=== PATIENT | female | born 1930 | race African-American/Black ===

== ENCOUNTER 2017-04-22 21:00 | Emergency (ER) | payer MEDICARE, OTHER ==
[~2017-04-22] VITALS: Ht 170.2 cm; Wt 81.6 kg
[2017-04-22] MEDS ORDERED: ONDANSETRON PF 4 MG/2 ML VIAL. IV ONE (21:30)
[2017-04-22] MEDS ORDERED: fentaNYL PF VIAL 100 MCG/2 ML VIAL IV PRN (21:30)
[2017-04-22 21:40] LABS: BASO # 0.1 x10^3/uL (0.0-0.2); BASO % 1 % (0-3); EOS % 2 % (0-3); HEMATOCRIT 29.9 % (36.0-47.0); LYMPH # 1.8 x10^3/uL (1.0-4.8); LYMPH % 27 % (24-48); MEAN CORPUSCULAR HEMOGLOBIN 31 pg (25-35); MEAN CORPUSCULAR HGB CONC 33 g/dL (31-37); MEAN CORPUSCULAR VOLUME 92 fL (79-100); MONO % 8 % (0-9); NEUT % 62 % (31-73); PLATELET COUNT 378 x10^3/uL (140-400); RED BLOOD COUNT 3.27 x10^6/uL (3.50-5.40); RED CELL DISTRIBUTION WIDTH 14.4 % (11.5-14.5); WHITE BLOOD COUNT 6.8 x10^3/uL (4.0-11.0)
[2017-04-22 21:52] LABS: CALCIUM 9.9 mg/dL (8.5-10.1); GFR 63.8; POTASSIUM 3.4 mmol/L (3.5-5.1)
[2017-04-22 21:57] LABS: ALBUMIN 3.9 g/dL (3.4-5.0); ALBUMIN/GLOBULIN RATIO 1.1 (1.0-1.7); TOTAL BILIRUBIN 0.4 mg/dL (0.2-1.0); TOTAL PROTEIN 7.6 g/dL (6.4-8.2)
--- NOTE | 2017-04-22 22:03 | ED.ADGEN ---
Past Medical History Past Medical History: Diabetes-Type II, Hypertension, Kidney Stone Past Surgical History: Appendectomy, Cholecystectomy, Hysterectomy, Other Additional Past Surgical Histo: BLADDER REPAIR Alcohol Use: None Drug Use: None Adult General Chief Complaint Chief Complaint: FLANK PAIN HPI HPI Patient is a 86 year old woman, history of type 2 diabetes mellitus, hypertension, recurrent renal calculi, who presents to the emergency department with a complaint of right-sided abdominal pain that began yesterday morning. Patient states today she was also experiencing some increased difficulty with urination. Denies any hematuria or dysuria. Patient states the pain is similar to previous renal calculi. She states that "3 years ago had a stone that was too big to pass". She states that she was told she would need surgery, but she declined at that time. Patient states she has not followed up with a neurologist. She denies any fevers or chills, states that she had nausea at home and currently, and had tubes sodas of nonbloody nonbilious emesis since yesterday. She denies any weakness, numbness, tingling, shortness of breath or chest pain, any headache, any presyncopal or syncopal symptoms. No injuries. She states the pain has been located in the right side since it started, without much movement, has been coming and going, up to a 7 out of 10, currently is about a 3 out of 10. She states she's also been experiencing some swelling in her feet, and states that she has forgotten to take her blood pressure medication intermittently over the past several days. History of hysterectomy and cholecystectomy, no recent surgery, travel or exposures. Review of Systems Review of Systems Constitutional: Denies fever or chills. [] Eyes: Denies change in visual acuity. [] HENT: Denies nasal congestion or sore throat. [] Respiratory: Denies cough or shortness of breath. [] Cardiovascular: Denies chest pain or edema. [] GI: Denies bloody stools or diarrhea. [] Right-sided abdominal pain, waxing and waning, associated with decreased urination, nausea and vomiting. : Denies dysuria. [] Musculoskeletal: Denies back pain or joint pain. [] Integument: Denies rash. [] Neurologic: Denies headache, focal weakness or sensory changes. [] Endocrine: Denies polyuria or polydipsia. [] Lymphatic: Denies swollen glands. [] Psychiatric: Denies depression or anxiety. [] Current Medications Current Medications Current Medications Medications (Trade) Dose Ordered Sig/Kaye Start Time Stop Time Status Last Admin Dose Admin Fentanyl Citrate (Fentanyl 2ml Vial) 50 mcg 1X ONCE 04/22/17 23:00 04/22/17 23:01 DC 04/22/17 22:52 50 MCG Morphine Sulfate 5 mg 1X ONCE 04/22/17 23:30 04/22/17 23:31 DC Ondansetron HCl (Zofran) 4 mg 1X ONCE 04/22/17 21:30 04/22/17 21:32 DC 04/22/17 22:01 4 MG Allergies Allergies Allergies Coded Allergies Type Severity Reaction Last Updated Verified No Known Drug Allergies 03/06/14 No Physical Exam Physical Exam Constitutional: Well developed, well nourished, no acute distress, non-toxic appearance. [] HENT: Normocephalic, atraumatic, bilateral external ears normal, oropharynx moist, no oral exudates, nose normal. [] Eyes: PERRLA, EOMI, conjunctiva normal, no discharge. [] Neck: Normal range of motion, no tenderness, supple, no stridor. [] Cardiovascular:Heart rate regular rhythm, no murmur [] Lungs & Thorax: Bilateral breath sounds clear to auscultation [] Abdomen: Bowel sounds normal, soft, no tenderness, no masses, no pulsatile masses. [] Skin: Warm, dry, no erythema, no rash. [] Back: No tenderness, no CVA tenderness. [] Extremities: No tenderness, no cyanosis, no clubbing, ROM intact, no edema. [] Neurologic: Alert and oriented X 3, normal motor function, normal sensory function, no focal deficits noted. [] Psychologic: Affect normal, judgement normal, mood normal. [] Current Patient Data Vital Signs Vital Signs Date Time Temp Pulse Resp B/P (MAP) Pulse Ox O2 Delivery O2 Flow Rate FiO2 04/22/17 22:52 18 Room Air 04/22/17 21:17 99.2 95 220/93 (135) 93 99.2 Lab Values Laboratory Tests Test 04/22/17 21:13 04/22/17 21:52 White Blood Count 6.8 x10^3/uL (4.0-11.0) Red Blood Count 3.27 x10^6/uL (3.50-5.40) L Hemoglobin 10.0 g/dL (12.0-15.5) L Hematocrit 29.9 % (36.0-47.0) L Mean Corpuscular Volume 92 fL (79-100) Mean Corpuscular Hemoglobin 31 pg (25-35) Mean Corpuscular Hemoglobin Concent 33 g/dL (31-37) Red Cell Distribution Width 14.4 % (11.5-14.5) Platelet Count 378 x10^3/uL (140-400) Neutrophils (%) (Auto) 62 % (31-73) Lymphocytes (%) (Auto) 27 % (24-48) Monocytes (%) (Auto) 8 % (0-9) Eosinophils (%) (Auto) 2 % (0-3) Basophils (%) (Auto) 1 % (0-3) Neutrophils # (Auto) 4.2 x10^3uL (1.8-7.7) Lymphocytes # (Auto) 1.8 x10^3/uL (1.0-4.8) Monocytes # (Auto) 0.5 x10^3/uL (0.0-1.1) Eosinophils # (Auto) 0.1 x10^3/uL (0.0-0.7) Basophils # (Auto) 0.1 x10^3/uL (0.0-0.2) Sodium Level 137 mmol/L (136-145) Potassium Level 3.4 mmol/L (3.5-5.1) L Chloride Level 99 mmol/L (98-107) Carbon Dioxide Level 27 mmol/L (21-32) Anion Gap 11 (6-14) Blood Urea Nitrogen 18 mg/dL (7-20) Creatinine 1.0 mg/dL (0.6-1.0) Estimated GFR (Cockcroft-Gault) 63.8 BUN/Creatinine Ratio 18 (6-20) Glucose Level 162 mg/dL (70-99) H Calcium Level 9.9 mg/dL (8.5-10.1) Total Bilirubin 0.4 mg/dL (0.2-1.0) Aspartate Amino Transferase (AST) 27 U/L (15-37) Alanine Aminotransferase (ALT) 19 U/L (14-59) Alkaline Phosphatase 76 U/L (46-116) Total Protein 7.6 g/dL (6.4-8.2) Albumin 3.9 g/dL (3.4-5.0) Albumin/Globulin Ratio 1.1 (1.0-1.7) Urine Collection Type Unknown Urine Color Yellow Urine Clarity Cloudy Urine pH 5.5 Urine Specific [place] 1.010 Urine Protein Negative mg/dL (NEG-TRACE) Urine Glucose (UA) Negative mg/dL (NEG) Urine Ketones (Stick) Negative mg/dL (NEG) Urine Blood Large (NEG) Urine Nitrite Negative (NEG) Urine Bilirubin Negative (NEG) Urine Urobilinogen Dipstick 0.2 mg/dL (0.2 mg/dL) Urine Leukocyte Esterase Large (NEG) Urine RBC 20-40 /HPF (0-2) Urine WBC Tntc /HPF (0-4) Urine Squamous Epithelial Cells Mod /LPF Urine Bacteria Many /HPF (0-FEW) Urine Mucus Slight /LPF Laboratory Tests 04/22/17 21:13 Laboratory Tests 04/22/17 21:13 EKG EKG EC: Sinus rhythm, heart rate 88 bpm, upright axis, QTC of 463, [place] of 134 , QRS of 82, no ST elevations, patient with mild ST depression noted in the lateral leads, abnormal ECG, does not meet STEMI criteria. As interpreted by me. [] Radiology/Procedures Radiology/Procedures [] Course & Med Decision Making Course & Med Decision Making Pertinent Labs and Imaging studies reviewed. (See chart for details) Discussed with patient that this could be a recurrent stone, or other abnormality which would be best served by obtaining imaging of the abdomen. Patient is agreeable, laboratory studies, CT of the abdomen and pelvis, and antiemetics with pain medication ordered. I did discuss with patient that as he did have urology coverage currently at [facility], if there is "a stone that is too big to pass" or other complication is noted that I will recommend that she be transferred to another hospital where urology be available. Patient states that she is not willing to have surgery, would be willing to see what her options would be available. Called to patient's room, by audio visual tech and nurse, stated the patient had declined CT imaging. Discussed with patient why CT imaging would be the most appropriate study, which had been discussed during initial conversation. Patient states that "before the [facility] x-rays". Discussed with patient that x-rays renal ultrasound be suboptimal in this situation. Patient states that she is having too much pain to lie flat. Patient to previous a lifeline during my examination , she has received a single dose of fentanyl at this time, a second dose of fentanyl was given. Patient was then taken back to the CT scanner, patient stated again that she would be unable to perform the study. This was again discussed with patient, and she was offered a dose of morphine. Patient stated at that point that she did not want any additional pain medication or additional evaluation. She stated that "they have done x-rays before". She stated that she did not want to stay for additional evaluation at this point. I did discuss with patient that without additional imaging evaluation I cannot be certain if there is a kidney stone or other concerning finding with her abdomen , which could indicate significant morbidity or even mortality. Patient voices understanding, is calm and cooperative, appropriate her responses. Patient's family at bedside who also voiced understanding. Patient states that she would like to leave at this time. AMA Paperwork was completed with nurse Fonseca. As patient's laboratory studies revealed a urinalysis with too numerous to count WBCs, and 20-40 RBCs, patient was prescribed Keflex 4 times daily, and told to follow-up with her doctor tomorrow morning, it was also expressed to the patient repeatedly that she was encouraged to return to the ED for additional evaluation any time. Dragon Disclaimer Dragon Disclaimer This electronic medical record was generated, in whole or in part, using a voice recognition dictation system. Departure Disposition: 07 AGAINST MEDICAL ADVICE Condition: STABLE Scripts Cephalexin (CEPHALEXIN) 500 Mg Capsule 1 CAP PO QID, #40 CAP Prov: ROSY DOWELL DO 04/22/17 ROSY DOWELL DO Apr 22, 2017 22:03
[2017-04-22 22:04] LABS: BILIRUBIN,URINE NEGATIVE (NEG); GLUCOSE,URINE NEGATIVE (NEG); NITRITE,URINE NEGATIVE (NEG); PH,URINE 5.5; PROTEIN,URINE NEGATIVE (NEG-TRACE); UROBILINOGEN,URINE 0.2 mg/dL (0.2 mg/dL)
[2017-04-22 22:11] LABS: RBC,URINE 20-40 /HPF (0-2)
[2017-04-22 22:12] LABS: BACTERIA,URINE MANY /HPF (0-FEW); SQUAMOUS EPITHELIAL CELL,UR MOD /LPF; WBC,URINE TNTC /HPF (0-4)
[2017-04-22] MEDS ORDERED: fentaNYL PF VIAL 100 MCG/2 ML VIAL IV ONE (23:00)
[2017-04-22] MEDS ORDERED: CEPH500C PO (23:26)
[2017-04-22 23:30] VITALS: BP 192/89
[2017-04-22] MEDS ORDERED: MORPHINE SULFATE 10 MG/ML VIAL. IV ONE (23:30)
--- NOTE | 2017-04-23 07:02 | EKG ---
[facility] [address] [place] [address] Test Date: 2017-04-22 Test Time: 21:41:56 Pat Name: ELA SANTIAGO Department: Room: Gender: F [employer]: : [id number] Requested By: ROSY DOWELL Order Number: [id number] Reading MD: Measurements Intervals [place] Rate: 88 P: -3 [place]: 134 QRS: 14 QRSD: 82 T: 45 QT: 380 QTc: 463 Interpretive Statements SINUS RHYTHM LEFT ATRIAL ABNORMALITY RI6.01 Unconfirmed report No previous ECG available for comparison
== END 2017-04-22 23:35 | disposition left against medical advice (07) ==
LOC: ER 21:00
DX: R10.9 Unspecified abdominal pain (principal); R39.198 Other difficulties with micturition; E11.9 Type 2 diabetes mellitus without complications; I10 Essential (primary) hypertension; Z87.442 Personal history of urinary calculi; Z90.710 Acquired absence of both cervix and uterus; Z90.49 Acquired absence of other specified parts of digestive tract; Z98.890 Other specified postprocedural states
CPT/HCPCS: 36415; 80053; 81001; 85027; 87086; 93005; 96374; 96375; 96376; 99285; J2405; J3010